=== PATIENT | female | born 1935 | race Caucasian/White ===

== ENCOUNTER 2017-07-07 11:29 | Emergency (ER) | payer OTHER, MEDICARE ==
[~2017-07-07] VITALS: Ht 160 cm; Wt 71.8 kg
[2017-07-07 11:33] VITALS: Ht 160 cm; Wt 71.8 kg
[2017-07-07 15:53] VITALS: BP 144/77
== END 2017-07-07 15:44 | disposition home or self-care (01) ==
LOC: ED 11:29
DX: J40 Bronchitis, not specified as acute or chronic (principal); I10 Essential (primary) hypertension
CPT/HCPCS: J7613